=== PATIENT | female | born 1945 | race Caucasian/White ===

== ENCOUNTER → 2017-06-02 14:31 | Outpatient (CLI) | payer MEDICARE, OTHER, SELFPAY ==
--- NOTE | 2017-06-02 14:34 | RAD_ITS ---
STUDY: X-RAY - CERVICAL SPINE REASON FOR EXAM: Female, 71 years old. Cervical pain x2 weeks, arthritis TECHNIQUE: 3 view(s) of the cervical spine were obtained. COMPARISON: None FINDINGS: The study is technically limited. An AP open-mouth odontoid view was not obtained. Normal cervical lordosis. There is endplate osteophytosis of C5. There is narrowing of the C4-5 and C5-6 disc spaces. The soft tissue structures are unremarkable. RAD/Cerv Spine 2 or 3 Views IMPRESSION: Limited study is an AP open-mouth odontoid view was not obtained. Endplate osteophytosis of C5. Narrowing of the C4-5 and C5-6 disc spaces. There is no evidence of fracture or subluxation. Electronically Signed: Akira Zimmerman MD at 19:27 EST , Service support ,
== END ==
PROVIDERS: Visit Provider Anesthesiology Pain Medicine
DX: M54.2 Cervicalgia (principal)
CPT/HCPCS: 72040